=== PATIENT | female | born 1960 | race Caucasian/White ===

== ENCOUNTER 2021-05-08 14:59 | Emergency (ER) | payer MEDICARE, OTHER ==
[~2021-05-08 14:59] MED LIST: VIBRAMYCIN100 MG PO
[2021-05-08 17:24] LABS: BASOPHIL 0.8 % (0-2); EOSINOPHIL 1.8 % (0-5); HCT 38.1 % (37.0-47.0); HGB 12.6 g/dl (12.5-16.0); LYMPHOCYTE 28.9 % (15-48); MCH 31.1 pg (25.0-31.0); MCHC 33.1 g/dL (32.0-36.0); MCV 94.1 fL (78.0-100.0); MONOCYTE 7.5 % (0-12); MPV 10.7 fL (6.0-9.5); NEUTROPHIL 60.7 % (41-80); NRBC 0; PLT 240 K/uL (150-400); RBC 4.05 M/uL (4.20-5.40); RDW 13.8 % (11.5-14.0)
[2021-05-08 17:38] LABS: BUN/CREAT RATIO (CALC) 22.7 RATIO; CREATININE 0.75 mg/dL (0.51-0.95); POTASSIUM 4.6 mmol/L (3.5-5.1)
[2021-05-08 19:25] LABS: BILIRUBIN NEGATIVE (NEGATIVE); BLOOD NEGATIVE Ery/uL (NEGATIVE); CLARITY CLEAR (CLEAR); COLOR YELLOW (YELLOW); GLUCOSE (U) NORMAL (NORMAL); LEUKOCYTES NEGATIVE Leu/uL (NEGATIVE); NITRITE NEGATIVE (NEGATIVE); PROTEIN NEGATIVE (NEGATIVE); UROBILINOGEN 0.2 mg/dL (0.2-1.0); pH 6.5 (5.0-9.0)
== END 2021-05-08 20:19 | disposition home or self-care (01) ==
LOC: FER 14:59
PROVIDERS: Nurse Practitioner Family
DX: G43.909 Migraine, unspecified, not intractable, without status migrainosus (principal); Z98.890 Other specified postprocedural states; Z88.0 Allergy status to penicillin; Z88.2 Allergy status to sulfonamides; Z88.5 Allergy status to narcotic agent
CPT/HCPCS: 36415; 70450; 80048; 81003; 85025; J1100; J1200; J1885; J2405; J7030